=== PATIENT | female | born 1975 | race Caucasian/White ===

== ENCOUNTER 2021-02-21 14:35 | Inpatient (IN) | payer OTHER, MEDICARE ==
[~2021-02-21 14:35] MED LIST: Iopamidol-370 76% 500 ML 1 ML ONE
[2021-02-21] MEDS ORDERED: Midazolam HCl 2 mg/2 ml Vial ONE (14:52)
[2021-02-21] MEDS ORDERED: Fentanyl 100 MCG/2 ML VIAL ONE ×2 (15:13→18:10)
[2021-02-21] MEDS ORDERED: Mannitol 12.5 GM/50 ML ONE ×2 (15:26→16:45)
[2021-02-21] MEDS ORDERED: Propofol 1,000 MG/100 ML VIAL IV ONE (16:18)
[2021-02-21 16:47] LABS: ALT (SGPT) 234 U/L (8-55); AST (SGOT) 377 U/L (5-34); Albumin 3.2 g/dL (3.5-5.0); Alkaline Phosphatase 48 U/L (40-110); Anion Gap 14 mmol/L (10-20); BUN (Urea Nitrogen) 9 mg/dL (7.0-18.7); Bilirubin, Total 0.6 mg/dL (0.2-1.2); Calc. Creatinine Clearance 0 mL/min (70-130); Calcium 8.7 mg/dL (7.8-10.44); Carbon Dioxide 17 mmol/L (22-29); Chloride 112 mmol/L (98-107); Globulin 1.8 g/dL (2.4-3.5); Glucose 133 mg/dL (70-105); Sodium 139 mmol/L (136-145)
[2021-02-21 16:50] LABS: Lactic Acid 2.9 mmol/L (0.5-2.2)
[2021-02-21 16:51] LABS: Band 41 % (5-11); Hemoglobin 12.9 g/dL (12.0-16.0); Lymphocytes 4 % (21-51); Mean Corpuscular HGB CONC 31.8 g/dL (32.0-36.0); Mean Corpuscular Hemoglobin 31.3 pg (27.0-31.0); Mean Corpuscular Volume 98.3 fL (78.0-98.0); Mean Platelet Volume 8.9 fL (7.4-10.4); Monocytes 11 % (0-10); Platelet Count 161 thou/uL (130-400); RBC Distribution Width 12.8 % (11.5-14.5); Red Blood Cell (RBC) Count 4.13 mill/uL (4.20-5.40); White Blood Cell (WBC) Count 26.8 thou/uL (4.8-10.8)
[2021-02-21 16:52] LABS: Platelet Morphology Comment Appears Adequate; Polychromasia SLIGHT = 2-3 cells (100X) (0-2/hpf)
[2021-02-21 16:53] LABS: INR-International Normal Ratio 1.4; PTT 31.3 sec (22.9-36.1); Prothrombin Time 17.3 sec (12.0-14.7)
[2021-02-21] MEDS ORDERED: Dextrose 5% in Water 1,000 ML IV PRN (17:49)
[2021-02-21] MEDS ORDERED: Lorazepam 2 MG/ML VIAL SLOW IVP PRN ×2 (17:49→18:00)
[2021-02-21] MEDS ORDERED: hydrALAZINE 20 MG/ML VIAL SLOW IVP PRN (17:49)
[2021-02-21] MEDS ORDERED: Ondansetron ODT 4 MG TAB PO PRN (17:49)
[2021-02-21] MEDS ORDERED: Ventilator Sedation Protocol 1 EACH FS SCH (17:49)
[2021-02-21] MEDS ORDERED: Ondansetron PF 4 MG/2 ML Vial IVP PRN (17:49)
[2021-02-21] MEDS ORDERED: Dextrose 50% Abboject 50 ML SYRINGE SLOW IVP PRN (17:49)
[2021-02-21 17:50] LABS: Base Excess (BEa) -7.2 mEq/L (-2.0 to +3.0); CO2 Tension 40.7 mmHg (35.0-45.0); Calcium, Ionized (arterial) 1.16 mmol/L (1.12-1.30); Carboxyhemoglobin (COHb) 0.3 gm% (0.0-3.0); Hemoglobin (Hb) 11.4 g/dL (12.0-16.0); O2 Tension (PaO2), arterial 231.6 mmHg (80.0-100.0); Potassium - ABG Lab 4.24 mmol/L (3.70-5.30); pH, Arterial 7.29 (7.35-7.45)
[2021-02-21 17:58] LABS: Puncture Site Arterial Line
[2021-02-21 17:59] LABS: ALV-art Gradient 145.325 mmHg (0-20)
[2021-02-21] MEDS ORDERED: DISCONTINUE PREVIOUS NARCOTIC PAIN MEDICATIONS AND BENZODIAZEPINES FS SCH (18:00)
[2021-02-21] MEDS ORDERED: Propofol BOLUS 1,000 MG/100 ML VIAL IV PRN (18:00)
[2021-02-21] MEDS ORDERED: Morphine 2 MG/ML VIAL SLOW IVP PRN (18:00)
[2021-02-21] MEDS ORDERED: Fentanyl BOLUS 250 ML IVPB PRN (18:00)
[2021-02-21] MEDS ORDERED: Fentanyl CADD 100 ML ONE (18:15)
[2021-02-21] MEDS: Mannitol 12.5 GM/50 ML SLOW IVP SCH ×2 (18:15→18:45)
[2021-02-21] MEDS: Sodium Chloride 0.9% 1,000 ML IV SCH (18:15)
[2021-02-21] MEDS ORDERED: manNITOL 20% 500 ML IVPB SCH (18:45)
[2021-02-21] MEDS: ceFAZolin 1 GM/D5W 1 GM in Premix Bag 1 BAG IVPB SCH (19:32)
[2021-02-21] MEDS: Famotidine/PF 20 mg/2ml Vial SLOW IVP SCH (21:33)
[2021-02-21] MEDS ORDERED: CEFAZOLIN 1 GM VIAL SLOW IVP SCH (22:00)
[2021-02-21] MEDS: manNITOL 20% 250 ML IVPB SCH (23:26)
[2021-02-21 23:53] LABS: Sodium 136 mmol/L (136-145)
[2021-02-22] MEDS: Propofol 1,000 MG/100 ML VIAL IV PRN ×3 (00:29→20:42)
[2021-02-22] MEDS ORDERED: Norepinephrine 8 MG/0.9% NS 250 ML ONE (01:05)
[2021-02-22] MEDS ORDERED: Hydrocortisone Sod Succ/PF 100 mg/2 ml Vial IVP SCH (01:30)
[2021-02-22] MEDS ORDERED: Norepinephrine 16 MG in Dextrose 5% in Water 234 ML IVPB SCH (01:30)
[2021-02-22 02:09] LABS: Hemoglobin 11.6 g/dL (12.0-16.0)
[2021-02-22] MEDS: ceFAZolin 1 GM/D5W 1 GM in Premix Bag 1 BAG IVPB SCH ×3 (03:16→20:56)
[2021-02-22 03:42] LABS: #Basophils 0.1 thou/uL (0.0-0.2); #Monocytes 1.7 thou/uL (0.11-0.59); #Neutrophils 17.9 thou/uL (1.40-6.50); %Basophils 0.3 % (0.0-1.0); %Eosinophils 0.1 % (0.0-10.0); %Lymphocytes 9.2 % (21.0-51.0); %Monocytes 7.6 % (0.0-10.0); %Neutrophils 82.8 % (42.0-75.0); Hemoglobin 11.5 g/dL (12.0-16.0); Mean Corpuscular HGB CONC 33.1 g/dL (32.0-36.0); Mean Corpuscular Volume 96.9 fL (78.0-98.0); Mean Platelet Volume 9.6 fL (7.4-10.4); Platelet Count 166 thou/uL (130-400); RBC Distribution Width 13.5 % (11.5-14.5); Red Blood Cell (RBC) Count 3.59 mill/uL (4.20-5.40); White Blood Cell (WBC) Count 21.7 thou/uL (4.8-10.8)
[2021-02-22 04:04] LABS: Phosphorus 4.3 mg/dL (2.3-4.7)
[2021-02-22 04:05] LABS: Anion Gap 12 mmol/L (10-20); BUN (Urea Nitrogen) 14 mg/dL (7.0-18.7); Calc. Creatinine Clearance 63 mL/min (70-130); Carbon Dioxide 20 mmol/L (22-29); Chloride 110 mmol/L (98-107); Potassium 5.3 mmol/L (3.5-5.1); Sodium 137 mmol/L (136-145)
[2021-02-22 04:06] LABS: Calcium 8.2 mg/dL (7.8-10.44); Glucose 141 mg/dL (70-105)
[2021-02-22] MEDS: manNITOL 20% 250 ML IVPB SCH ×3 (04:43→18:39)
[2021-02-22] MEDS: Hydrocortisone Sod Succ/PF 100 mg/2 ml Vial IVP SCH ×3 (06:33→18:41)
[2021-02-22 07:00] LABS: Actual Bicarbonate (HCO3a) 17.4 mEq/L (22-28); Base Excess (BEa) -8.1 mEq/L (-2.0 to +3.0); Calcium, Ionized (arterial) 1.19 mmol/L (1.12-1.30); Carboxyhemoglobin (COHb) 0.3 gm% (0.0-3.0); Hemoglobin (Hb) 11.7 g/dL (12.0-16.0); O2 Tension (PaO2), arterial 211.4 mmHg (80.0-100.0)
[2021-02-22 07:03] LABS: Puncture Site Arterial Line
[2021-02-22] MEDS: Famotidine/PF 20 mg/2ml Vial SLOW IVP SCH ×2 (07:38→20:42)
[2021-02-22] MEDS: Sodium Chloride 0.9% 1,000 ML IV SCH ×3 (07:38→20:24)
[2021-02-22] MEDS: Fentanyl CADD 100 ML IV SCH ×2 (08:00→20:42)
[2021-02-22] MEDS ORDERED: PHENYLEPHRINE-NS 100 MCG/ML 10 ML SYRINGE ONE (14:51)
[2021-02-22] MEDS ORDERED: Rocuronium Bromide 10 MG/ML (10ML VIAL) ONE (14:51)
[2021-02-22] MEDS ORDERED: Bacitracin Zinc Ointment 30 gm TUBE ONE (15:09)
[2021-02-22] MEDS ORDERED: Lidocaine 0.5%/Epinephrine 1:200,000 50 ml Vial ONE (15:09)
[2021-02-22] MEDS ORDERED: Lidocaine 4% Topical Sol 50 ML BOT ONE (15:09)
[2021-02-22] MEDS ORDERED: Fentanyl 250 MCG/5 ML VIAL ONE (15:11)
[2021-02-22] MEDS ORDERED: Phenylephrine 10 MG/ML VIAL ONE ×3 (15:17)
[2021-02-22] MEDS ORDERED: Mannitol 12.5 GM/50 ML IV PRN (18:03)
[2021-02-22] MEDS ORDERED: Sodium Chloride 0.9% 1,000 ML IV SCH (18:15)
[2021-02-22 18:57] LABS: Actual Bicarbonate (HCO3a) 17.9 mEq/L (22-28); Base Excess (BEa) -7.7 mEq/L (-2.0 to +3.0); CO2 Tension 36.1 mmHg (35.0-45.0); Calcium, Ionized (arterial) 1.07 mmol/L (1.12-1.30); Carboxyhemoglobin (COHb) 0.3 gm% (0.0-3.0); Hemoglobin (Hb) 7.7 g/dL (12.0-16.0); O2 Tension (PaO2), arterial 189.4 mmHg (80.0-100.0); Potassium - ABG Lab 4.45 mmol/L (3.70-5.30); pH, Arterial 7.31 (7.35-7.45)
[2021-02-22 18:59] LABS: ALV-art Gradient 121.975 mmHg (0-20); Puncture Site Arterial Line
[2021-02-22] MEDS ORDERED: Calcium Chloride 1 GM/10 ML Abboject SYRINGE IVP SCH (19:15)
[2021-02-22] MEDS ORDERED: Fentanyl CADD 100 ML ONE (20:02)
[2021-02-23] MEDS: ceFAZolin 1 GM/D5W 1 GM in Premix Bag 1 BAG IVPB SCH ×3 (03:19→20:27)
[2021-02-23] MEDS: Sodium Chloride 0.9% 1,000 ML IV SCH (03:20)
[2021-02-23] MEDS ORDERED: Lorazepam 2 MG/ML VIAL SLOW IVP SCH (04:00)
[2021-02-23 04:42] LABS: Lactic Acid 5.8 mmol/L (0.5-2.2)
[2021-02-23 04:44] LABS: Anion Gap 14 mmol/L (10-20); BUN (Urea Nitrogen) 13 mg/dL (7.0-18.7); CK (CPK) 2367 U/L (29-168); Calc. Creatinine Clearance 72 mL/min (70-130); Calcium 8.5 mg/dL (7.8-10.44); Carbon Dioxide 19 mmol/L (22-29); Chloride 120 mmol/L (98-107); Glucose 149 mg/dL (70-105); Magnesium 1.9 mg/dL (1.6-2.6); Phosphorus 4.2 mg/dL (2.3-4.7); Sodium 149 mmol/L (136-145)
[2021-02-23] MEDS ORDERED: levETIRAcetam in NS 1,000 MG in Premix Bag 1 BAG IVPB SCH (04:45)
[2021-02-23] MEDS: Lactated Ringer's 1,000 ML IV SCH ×2 (05:08→14:49)
[2021-02-23] MEDS: Hydrocortisone Sod Succ/PF 100 mg/2 ml Vial IVP SCH ×4 (05:08→18:54)
[2021-02-23 05:20] LABS: #Monocytes 0.7 thou/uL (0.11-0.59); #Neutrophils 10.3 thou/uL (1.40-6.50); %Basophils 0.1 % (0.0-1.0); %Lymphocytes 8.1 % (21.0-51.0); %Monocytes 6.2 % (0.0-10.0); %Neutrophils 85.6 % (42.0-75.0); Hemoglobin 7.7 g/dL (12.0-16.0); Mean Corpuscular HGB CONC 32.5 g/dL (32.0-36.0); Mean Corpuscular Hemoglobin 31.8 pg (27.0-31.0); Mean Corpuscular Volume 97.6 fL (78.0-98.0); Mean Platelet Volume 10.4 fL (7.4-10.4); Platelet Count 103 thou/uL (130-400); Platelet Morphology Comment Appears Decreased; RBC Distribution Width 13.8 % (11.5-14.5); Red Blood Cell (RBC) Count 2.42 mill/uL (4.20-5.40)
[2021-02-23] MEDS: Famotidine/PF 20 mg/2ml Vial SLOW IVP SCH ×2 (08:35→20:58)
[2021-02-23] MEDS: levETIRAcetam in NS 500 MG in Premix Bag 1 BAG IVPB SCH ×2 (08:36→20:58)
[2021-02-23 08:48] LABS: Actual Bicarbonate (HCO3a) 18.3 mEq/L (22-28); Base Excess (BEa) -7.9 mEq/L (-2.0 to +3.0); CO2 Tension 40.1 mmHg (35.0-45.0); Carboxyhemoglobin (COHb) 0.1 gm% (0.0-3.0); Hemoglobin (Hb) 8.5 g/dL (12.0-16.0); O2 Tension (PaO2), arterial 60.7 mmHg (80.0-100.0); Potassium - ABG Lab 3.66 mmol/L (3.70-5.30); pH, Arterial 7.28 (7.35-7.45)
[2021-02-23 08:49] LABS: ALV-art Gradient 245.675 mmHg (0-20); Puncture Site Arterial Line
[2021-02-23] MEDS ORDERED: Vecuronium 10 MG VIAL ONE (08:50)
[2021-02-23] MEDS ORDERED: Sterile Water 10 ML ONE (08:50)
[2021-02-23] MEDS ORDERED: Vecuronium 10 MG VIAL IVP SCH (09:00)
[2021-02-23] MEDS ORDERED: Fentanyl CADD 100 ML ONE (11:33)
[2021-02-23 17:27] LABS: Actual Bicarbonate (HCO3a) 18.9 mEq/L (22-28); Base Excess (BEa) -6.4 mEq/L (-2.0 to +3.0); CO2 Tension 36.6 mmHg (35.0-45.0); Calcium, Ionized (arterial) 1.14 mmol/L (1.12-1.30); Carboxyhemoglobin (COHb) 0.4 gm% (0.0-3.0); Hemoglobin (Hb) 7.5 g/dL (12.0-16.0); O2 Tension (PaO2), arterial 133.3 mmHg (80.0-100.0); Potassium - ABG Lab 3.35 mmol/L (3.70-5.30); pH, Arterial 7.33 (7.35-7.45)
[2021-02-23 17:31] LABS: Puncture Site Arterial Line
[2021-02-23 18:03] LABS: Hemoglobin 8.2 g/dL (12.0-16.0); Mean Corpuscular Hemoglobin 33.6 pg (27.0-31.0); Mean Corpuscular Volume 98.8 fL (78.0-98.0); Mean Platelet Volume 10.2 fL (7.4-10.4); Platelet Count 90 thou/uL (130-400); RBC Distribution Width 13.5 % (11.5-14.5); Red Blood Cell (RBC) Count 2.44 mill/uL (4.20-5.40); White Blood Cell (WBC) Count 6.7 thou/uL (4.8-10.8)
[2021-02-23 18:25] LABS: Band 51 % (5-11); Dohle Bodies SLIGHT; Lymphocytes 16 % (21-51); MDiff Complete? YES; Metamyelocyte 7 % (0-0); Neutrophil 25 % (42-75); Nucleated RBC 1 % (0); Platelet Morphology Comment Appears Decreased; Polychromasia SLIGHT = 2-3 cells (100X) (0-2/hpf); Reflex for Review?? YES; Vacuoles SLIGHT
[2021-02-24] MEDS: Lactated Ringer's 1,000 ML IV SCH ×3 (00:13→19:44)
[2021-02-24] MEDS: Hydrocortisone Sod Succ/PF 100 mg/2 ml Vial IVP SCH ×5 (00:14→23:54)
[2021-02-24] MEDS: ceFAZolin 1 GM/D5W 1 GM in Premix Bag 1 BAG IVPB SCH ×3 (03:13→19:44)
[2021-02-24 04:44] LABS: Anion Gap 11 mmol/L (10-20); BUN (Urea Nitrogen) 14 mg/dL (7.0-18.7); Calc. Creatinine Clearance 92 mL/min (70-130); Calcium 8.5 mg/dL (7.8-10.44); Carbon Dioxide 24 mmol/L (22-29); Chloride 119 mmol/L (98-107); Glucose 115 mg/dL (70-105); Phosphorus 2.5 mg/dL (2.3-4.7); Potassium 3.7 mmol/L (3.5-5.1); Sodium 150 mmol/L (136-145)
[2021-02-24 04:53] LABS: Band 75 % (5-11); Hemoglobin 7.7 g/dL (12.0-16.0); Lymphocytes 7 % (21-51); MDiff Complete? YES; Mean Corpuscular Volume 96.8 fL (78.0-98.0); Mean Platelet Volume 9.8 fL (7.4-10.4); Metamyelocyte 3 % (0-0); Monocytes 1 % (0-10); Neutrophil 14 % (42-75); Platelet Count 92 thou/uL (130-400); Platelet Morphology Comment Appears Decreased; RBC Distribution Width 13.6 % (11.5-14.5); RBC Morphology Normal; Red Blood Cell (RBC) Count 2.47 mill/uL (4.20-5.40); White Blood Cell (WBC) Count 9.8 thou/uL (4.8-10.8)
[2021-02-24 07:05] LABS: CO2 Tension 38.3 mmHg (35.0-45.0); pH, Arterial 7.39 (7.35-7.45)
[2021-02-24 07:06] LABS: Actual Bicarbonate (HCO3a) 22.7 mEq/L (22-28); Base Excess (BEa) -2.1 mEq/L (-2.0 to +3.0); Calcium, Ionized (arterial) 1.19 mmol/L (1.12-1.30); Carboxyhemoglobin (COHb) 0.3 gm% (0.0-3.0); Hemoglobin (Hb) 8.6 g/dL (12.0-16.0); O2 Tension (PaO2), arterial 114.8 mmHg (80.0-100.0); Potassium - ABG Lab 3.67 mmol/L (3.70-5.30)
[2021-02-24 07:48] LABS: ALV-art Gradient 193.825 mmHg (0-20); Puncture Site Arterial Line
[2021-02-24] MEDS: levETIRAcetam in NS 500 MG in Premix Bag 1 BAG IVPB SCH ×2 (09:10→20:32)
[2021-02-24] MEDS: Famotidine/PF 20 mg/2ml Vial SLOW IVP SCH ×2 (09:10→19:41)
[2021-02-24] MEDS: Acetaminophen 650 MG/20.3 ML UDCUP PER TUBE PRN (20:04)
[2021-02-24] MEDS ORDERED: Fentanyl CADD 100 ML ONE (20:28)
[2021-02-24] MEDS: Fentanyl CADD 100 ML IV SCH (20:30)
[2021-02-25] MEDS: ceFAZolin 1 GM/D5W 1 GM in Premix Bag 1 BAG IVPB SCH (03:17)
[2021-02-25 04:09] LABS: Hemoglobin 7.1 g/dL (12.0-16.0); Mean Corpuscular HGB CONC 32.8 g/dL (32.0-36.0); Mean Corpuscular Volume 97.7 fL (78.0-98.0); Platelet Count 121 thou/uL (130-400); RBC Distribution Width 13.3 % (11.5-14.5); Red Blood Cell (RBC) Count 2.21 mill/uL (4.20-5.40)
[2021-02-25 04:29] LABS: Anion Gap 12 mmol/L (10-20); BUN (Urea Nitrogen) 18 mg/dL (7.0-18.7); Calc. Creatinine Clearance 92 mL/min (70-130); Calcium 8.8 mg/dL (7.8-10.44); Carbon Dioxide 26 mmol/L (22-29); Chloride 117 mmol/L (98-107); Glucose 125 mg/dL (70-105); Magnesium 2.4 mg/dL (1.6-2.6); Phosphorus 2.9 mg/dL (2.3-4.7); Potassium 3.6 mmol/L (3.5-5.1); Sodium 151 mmol/L (136-145)
[2021-02-25 04:33] LABS: Band 58 % (5-11); Lymphocytes 5 % (21-51); MDiff Complete? YES; Monocytes 2 % (0-10); Neutrophil 35 % (42-75); Toxic Granulation SLIGHT
[2021-02-25] MEDS: Hydrocortisone Sod Succ/PF 100 mg/2 ml Vial IVP SCH ×5 (06:05→23:40)
[2021-02-25] MEDS: Lactated Ringer's 1,000 ML IV SCH ×2 (08:49→17:32)
[2021-02-25] MEDS: Famotidine/PF 20 mg/2ml Vial SLOW IVP SCH ×2 (08:53→20:25)
[2021-02-25] MEDS: levETIRAcetam in NS 500 MG in Premix Bag 1 BAG IVPB SCH ×2 (08:53→20:31)
[2021-02-25] MEDS: Acetaminophen 650 MG/20.3 ML UDCUP PER TUBE PRN ×3 (08:53→17:35)
[2021-02-25] MEDS: cefTRIAXone\\ROCEPHIN 2 GM in Sodium Chloride 0.9% 100 ML IVPB SCH (11:52)
[2021-02-25] MEDS ORDERED: Potassium Phosphate 30 MMOL in Sodium Chloride 0.9% 250 ML 250 ML IVPB SCH (12:30)
[2021-02-25] MEDS: Ferrous Sulfate 325 MG TAB PO SCH (17:30)
[2021-02-25] MEDS: Ascorbic Acid 500 mg Chewable Tablet PO SCH (20:25)
[2021-02-26] MEDS: Lactated Ringer's 1,000 ML IV SCH (04:23)
[2021-02-26 04:36] LABS: Band 32 % (5-11); Hypochromia SLIGHT = 6-15 cells (100X) (0-5/hpf); Lymphocytes 3 % (21-51); MDiff Complete? YES; Mean Corpuscular HGB CONC 31.8 g/dL (32.0-36.0); Mean Corpuscular Hemoglobin 30.7 pg (27.0-31.0); Mean Corpuscular Volume 96.6 fL (78.0-98.0); Mean Platelet Volume 9.6 fL (7.4-10.4); Monocytes 1 % (0-10); Neutrophil 64 % (42-75); Platelet Count 156 thou/uL (130-400); Platelet Morphology Comment Appears Adequate; RBC Distribution Width 13.8 % (11.5-14.5); Red Blood Cell (RBC) Count 2.91 mill/uL (4.20-5.40); White Blood Cell (WBC) Count 14.9 thou/uL (4.8-10.8)
[2021-02-26 04:45] LABS: Anion Gap 12 mmol/L (10-20); BUN (Urea Nitrogen) 14 mg/dL (7.0-18.7); Calc. Creatinine Clearance 107 mL/min (70-130); Calcium 8.8 mg/dL (7.8-10.44); Carbon Dioxide 27 mmol/L (22-29); Chloride 114 mmol/L (98-107); Glucose 154 mg/dL (70-105); Magnesium 2.3 mg/dL (1.6-2.6); Phosphorus 4.2 mg/dL (2.3-4.7); Potassium 3.7 mmol/L (3.5-5.1); Sodium 149 mmol/L (136-145)
[2021-02-26] MEDS: Hydrocortisone Sod Succ/PF 100 mg/2 ml Vial IVP SCH ×3 (05:34→17:04)
[2021-02-26] MEDS: Ascorbic Acid 500 mg Chewable Tablet PO SCH ×2 (07:52→20:28)
[2021-02-26] MEDS: Famotidine/PF 20 mg/2ml Vial SLOW IVP SCH ×2 (07:52→20:28)
[2021-02-26] MEDS: levETIRAcetam in NS 500 MG in Premix Bag 1 BAG IVPB SCH ×2 (07:53→21:24)
[2021-02-26] MEDS: Ferrous Sulfate 325 MG TAB PO SCH ×2 (07:53→16:55)
[2021-02-26] MEDS ORDERED: Senokot 8.6 MG TAB PO SCH (09:45)
[2021-02-26] MEDS: cefTRIAXone\\ROCEPHIN 2 GM in Sodium Chloride 0.9% 100 ML IVPB SCH (10:23)
[2021-02-26] MEDS: Acetaminophen 650 MG/20.3 ML UDCUP PER TUBE PRN ×3 (10:23→22:25)
[2021-02-26] MEDS ORDERED: Furosemide 40 MG/4 ML VIAL ONE (11:35)
[2021-02-26] MEDS ORDERED: Furosemide 20 MG/2 ML VIAL SLOW IVP SCH (11:45)
[2021-02-26] MEDS ORDERED: Fentanyl CADD 100 ML ONE (13:28)
[2021-02-26] MEDS: Senokot 8.6 MG TAB PER TUBE SCH (20:28)
[2021-02-27] MEDS: Hydrocortisone Sod Succ/PF 100 mg/2 ml Vial IVP SCH ×5 (00:16→23:23)
[2021-02-27 04:40] LABS: Hemoglobin 9.3 g/dL (12.0-16.0); Mean Corpuscular HGB CONC 32.2 g/dL (32.0-36.0); Mean Corpuscular Hemoglobin 31.1 pg (27.0-31.0); Mean Corpuscular Volume 96.5 fL (78.0-98.0); Mean Platelet Volume 9.8 fL (7.4-10.4); Platelet Count 205 thou/uL (130-400); RBC Distribution Width 13.2 % (11.5-14.5); Red Blood Cell (RBC) Count 2.99 mill/uL (4.20-5.40); White Blood Cell (WBC) Count 12.7 thou/uL (4.8-10.8)
[2021-02-27 05:01] LABS: Anion Gap 11 mmol/L (10-20); BUN (Urea Nitrogen) 18 mg/dL (7.0-18.7); Calc. Creatinine Clearance 104 mL/min (70-130); Calcium 8.3 mg/dL (7.8-10.44); Carbon Dioxide 30 mmol/L (22-29); Chloride 113 mmol/L (98-107); Glucose 160 mg/dL (70-105); Magnesium 2.4 mg/dL (1.6-2.6); Phosphorus 3.6 mg/dL (2.3-4.7); Potassium 3.5 mmol/L (3.5-5.1); Sodium 150 mmol/L (136-145)
[2021-02-27 05:12] LABS: Lymphocytes 11 % (21-51); MDiff Complete? YES; Metamyelocyte 1 % (0-0); Monocytes 2 % (0-10); Neutrophil 86 % (42-75); Nucleated RBC 1 % (0); Platelet Morphology Comment Appears Adequate
[2021-02-27] MEDS: Ferrous Sulfate 325 MG TAB PO SCH ×2 (08:22→17:14)
[2021-02-27] MEDS: levETIRAcetam in NS 500 MG in Premix Bag 1 BAG IVPB SCH ×2 (08:22→21:55)
[2021-02-27] MEDS: Famotidine/PF 20 mg/2ml Vial SLOW IVP SCH ×2 (08:22→22:13)
[2021-02-27] MEDS: Ascorbic Acid 500 mg Chewable Tablet PO SCH ×2 (08:22→22:13)
[2021-02-27] MEDS: Senokot 8.6 MG TAB PER TUBE SCH ×2 (08:23→22:20)
[2021-02-27] MEDS: cefTRIAXone\\ROCEPHIN 2 GM in Sodium Chloride 0.9% 100 ML IVPB SCH (11:25)
[2021-02-27] MEDS: Acetaminophen 650 MG/20.3 ML UDCUP PER TUBE PRN ×3 (12:41→22:08)
[2021-02-27] MEDS ORDERED: Polyethylene Glycol 3350 17 GM Packet PO SCH (17:15)
[2021-02-27] MEDS ORDERED: Fentanyl CADD 100 ML ONE (19:31)
[2021-02-27] MEDS: Fentanyl CADD 100 ML IV SCH (19:40)
[2021-02-27] MEDS: Amantadine HCl 100 mg Capsule PO SCH (22:10)
[2021-02-28] MEDS: Acetaminophen 650 MG/20.3 ML UDCUP PER TUBE PRN (02:28)
[2021-02-28 04:32] LABS: Anion Gap 11 mmol/L (10-20); BUN (Urea Nitrogen) 16 mg/dL (7.0-18.7); Calc. Creatinine Clearance 103 mL/min (70-130); Calcium 7.9 mg/dL (7.8-10.44); Carbon Dioxide 29 mmol/L (22-29); Chloride 112 mmol/L (98-107); Glucose 154 mg/dL (70-105); Magnesium 2.3 mg/dL (1.6-2.6); Phosphorus 3.1 mg/dL (2.3-4.7); Potassium 3.4 mmol/L (3.5-5.1); Sodium 149 mmol/L (136-145)
[2021-02-28 05:18] LABS: Band 23 % (5-11); Hemoglobin 8.4 g/dL (12.0-16.0); Lymphocytes 9 % (21-51); MDiff Complete? YES; Mean Corpuscular HGB CONC 32.7 g/dL (32.0-36.0); Mean Corpuscular Hemoglobin 31.8 pg (27.0-31.0); Mean Corpuscular Volume 97.4 fL (78.0-98.0); Mean Platelet Volume 9.4 fL (7.4-10.4); Monocytes 6 % (0-10); Neutrophil 62 % (42-75); Platelet Count 251 thou/uL (130-400); RBC Distribution Width 13.2 % (11.5-14.5); Red Blood Cell (RBC) Count 2.64 mill/uL (4.20-5.40); White Blood Cell (WBC) Count 11.2 thou/uL (4.8-10.8)
[2021-02-28] MEDS: Hydrocortisone Sod Succ/PF 100 mg/2 ml Vial IVP SCH ×4 (06:00→23:23)
[2021-02-28] MEDS ORDERED: Potassium Chloride 40 MEQ in Premix Bag 1 BAG IVPB SCH (06:45)
[2021-02-28] MEDS ORDERED: Fentanyl 100 MCG/2 ML VIAL ONE (08:07)
[2021-02-28] MEDS ORDERED: Midazolam HCl 2 mg/2 ml Vial ONE ×3 (08:07→08:34)
[2021-02-28] MEDS ORDERED: Vecuronium 10 MG VIAL ONE (08:07)
[2021-02-28] MEDS ORDERED: Lidocaine 1% w/Epinephrine 1:100K 20 ML VIAL ONE (08:29)
[2021-02-28] MEDS: Ferrous Sulfate 325 MG TAB PO SCH ×2 (09:52→16:29)
[2021-02-28] MEDS: Furosemide 20 MG/2 ML VIAL SLOW IVP SCH ×3 (09:52→23:23)
[2021-02-28] MEDS: Famotidine/PF 20 mg/2ml Vial SLOW IVP SCH ×2 (09:52→20:46)
[2021-02-28] MEDS: Ascorbic Acid 500 mg Chewable Tablet PO SCH ×2 (09:53→23:16)
[2021-02-28] MEDS: Amantadine HCl 100 mg Capsule PO SCH ×2 (09:53→23:16)
[2021-02-28] MEDS: Senokot 8.6 MG TAB PER TUBE SCH ×2 (09:55→23:16)
[2021-02-28] MEDS: Polyethylene Glycol 3350 17 GM Packet PO SCH (09:56)
[2021-02-28] MEDS: levETIRAcetam in NS 500 MG in Premix Bag 1 BAG IVPB SCH ×2 (09:56→20:44)
[2021-02-28] MEDS: cefTRIAXone\\ROCEPHIN 2 GM in Sodium Chloride 0.9% 100 ML IVPB SCH (11:03)
[2021-02-28 11:14] LABS: Bacteria/HPF None Seen HPF (None Seen); Bilirubin Negative (Negative); Blood, Urine Trace (Negative); Clarity Clear (Clear); Glucose, Urine (Dipstick) Normal (Negative); Ketone, Urine Negative (Negative); Leukocyte Negative Leu/uL (Negative); Nitrite Negative (Negative); Protein, Urine (Dipstick) Negative (Neg-Trace); RBC/HPF 0-3 HPF (0-3); Squamous Epithelial 0-3 HPF (0-3); Urobilinogen Normal mg/dL (Less than 2); WBC/HPF 0-3 HPF (0-3); pH, Urine 6.5 (5.0-9.0)
[2021-02-28 11:23] LABS: Urine Culture Reflex No No
[2021-02-28] MEDS ORDERED: Potassium Phosphate 30 MMOL in Sodium Chloride 0.9% 500 ML IVPB SCH (19:00)
[2021-03-01 05:01] LABS: #Monocytes 0.7 thou/uL (0.11-0.59); #Neutrophils 10.4 thou/uL (1.40-6.50); %Eosinophils 0.3 % (0.0-10.0); %Lymphocytes 7.9 % (21.0-51.0); %Monocytes 5.9 % (0.0-10.0); %Neutrophils 85.9 % (42.0-75.0); Hemoglobin 9.5 g/dL (12.0-16.0); Mean Corpuscular HGB CONC 31.9 g/dL (32.0-36.0); Mean Corpuscular Hemoglobin 31.2 pg (27.0-31.0); Mean Corpuscular Volume 97.8 fL (78.0-98.0); Mean Platelet Volume 9.2 fL (7.4-10.4); Platelet Count 323 thou/uL (130-400); Red Blood Cell (RBC) Count 3.05 mill/uL (4.20-5.40); White Blood Cell (WBC) Count 12.1 thou/uL (4.8-10.8)
[2021-03-01] MEDS: Hydrocortisone Sod Succ/PF 100 mg/2 ml Vial IVP SCH (06:32)
[2021-03-01 06:54] LABS: BUN (Urea Nitrogen) 19 mg/dL (7.0-18.7)
[2021-03-01 06:55] LABS: Anion Gap 13 mmol/L (10-20); Calc. Creatinine Clearance 107 mL/min (70-130); Calcium 8.3 mg/dL (7.8-10.44); Carbon Dioxide 31 mmol/L (22-29); Chloride 111 mmol/L (98-107); Glucose 115 mg/dL (70-105); Magnesium 2.3 mg/dL (1.6-2.6); Phosphorus 4.3 mg/dL (2.3-4.7); Potassium 3.7 mmol/L (3.5-5.1); Sodium 151 mmol/L (136-145)
[2021-03-01] MEDS: Polyethylene Glycol 3350 17 GM Packet PO SCH (09:08)
[2021-03-01] MEDS: Amantadine HCl 100 mg Capsule PO SCH ×2 (09:08→20:51)
[2021-03-01] MEDS: levETIRAcetam in NS 500 MG in Premix Bag 1 BAG IVPB SCH ×2 (09:08→20:52)
[2021-03-01] MEDS: Senokot 8.6 MG TAB PER TUBE SCH ×2 (09:09→20:52)
[2021-03-01] MEDS: Ascorbic Acid 500 mg Chewable Tablet PO SCH ×2 (09:09→20:53)
[2021-03-01] MEDS: Ferrous Sulfate 325 MG TAB PO SCH ×2 (09:09→17:22)
[2021-03-01] MEDS: Famotidine/PF 20 mg/2ml Vial SLOW IVP SCH ×2 (09:10→20:51)
[2021-03-01] MEDS: cefTRIAXone\\ROCEPHIN 2 GM in Sodium Chloride 0.9% 100 ML IVPB SCH (11:10)
[2021-03-01] MEDS: Acetaminophen 650 MG/20.3 ML UDCUP PER TUBE PRN (23:14)
[2021-03-02 05:03] LABS: Anion Gap 11 mmol/L (10-20); BUN (Urea Nitrogen) 21 mg/dL (7.0-18.7); Calc. Creatinine Clearance 115 mL/min (70-130); Carbon Dioxide 29 mmol/L (22-29); Chloride 113 mmol/L (98-107); Glucose 133 mg/dL (70-105); Magnesium 2.2 mg/dL (1.6-2.6); Potassium 3.3 mmol/L (3.5-5.1); Sodium 150 mmol/L (136-145)
[2021-03-02 05:08] LABS: #Eosinphils 0.2 thou/uL (0.0-0.7); #Lymphocytes 1.6 thou/uL (1.20-3.40); #Monocytes 0.7 thou/uL (0.11-0.59); #Neutrophils 11.2 thou/uL (1.40-6.50); %Basophils 0.1 % (0.0-1.0); %Eosinophils 1.5 % (0.0-10.0); %Lymphocytes 11.6 % (21.0-51.0); %Neutrophils 81.9 % (42.0-75.0); Eosinophils 1 % (0-10); Lymphocytes 8 % (21-51); MDiff Complete? YES; Mean Corpuscular HGB CONC 30.6 g/dL (32.0-36.0); Mean Corpuscular Hemoglobin 30.1 pg (27.0-31.0); Mean Corpuscular Volume 98.1 fL (78.0-98.0); Mean Platelet Volume 9.4 fL (7.4-10.4); Metamyelocyte 2 % (0-0); Monocytes 7 % (0-10); Neutrophil 82 % (42-75); Platelet Count 379 thou/uL (130-400); Platelet Morphology Comment Appears Adequate; RBC Distribution Width 13.3 % (11.5-14.5); Red Blood Cell (RBC) Count 2.99 mill/uL (4.20-5.40); White Blood Cell (WBC) Count 13.6 thou/uL (4.8-10.8)
[2021-03-02] MEDS: Acetaminophen 650 MG/20.3 ML UDCUP PER TUBE PRN ×3 (05:38→21:47)
[2021-03-02] MEDS ORDERED: Potassium Phosphate 30 MMOL in Sodium Chloride 0.9% 250 ML 250 ML IVPB SCH (06:45)
[2021-03-02] MEDS: Amantadine HCl 100 mg Capsule PO SCH ×2 (08:22→21:37)
[2021-03-02] MEDS: Ferrous Sulfate 325 MG TAB PO SCH ×2 (08:22→21:38)
[2021-03-02] MEDS: Senokot 8.6 MG TAB PER TUBE SCH ×2 (08:22→21:38)
[2021-03-02] MEDS: Ascorbic Acid 500 mg Chewable Tablet PO SCH ×2 (08:23→21:38)
[2021-03-02] MEDS: Polyethylene Glycol 3350 17 GM Packet PO SCH (08:23)
[2021-03-02] MEDS: Famotidine/PF 20 mg/2ml Vial SLOW IVP SCH ×2 (08:23→21:37)
[2021-03-02] MEDS: levETIRAcetam in NS 500 MG in Premix Bag 1 BAG IVPB SCH ×2 (08:31→21:36)
[2021-03-02] MEDS ORDERED: Piperacillin/Tazobactam 3.375 GM in Sodium Chloride 0.9% 100 ML IVPB SCH (09:00)
[2021-03-02] MEDS: Piperacillin/Tazobactam 4.5 GM in Sodium Chloride 0.9% 100 ML IVPB SCH ×3 (09:10→21:36)
[2021-03-02] MEDS ORDERED: Morphine 4 MG/ML VIAL SLOW IVP SCH (11:00)
[2021-03-02] MEDS ORDERED: Refresh Lacri-lube Opth Oint 7 GM TUBE EA EYE PRN (11:01)
[2021-03-02] MEDS: Floranex Packet PER TUBE SCH (12:24)
[2021-03-02] MEDS ORDERED: Vecuronium 10 MG VIAL IV SCH (17:45)
[2021-03-02] MEDS ORDERED: Fentanyl 100 MCG/2 ML VIAL SLOW IVP SCH (17:45)
[2021-03-02] MEDS ORDERED: Midazolam HCl 2 mg/2 ml Vial SLOW IVP SCH (17:45)
[2021-03-02 19:04] LABS: Actual Bicarbonate (HCO3a) 25.7 mEq/L (22-28); Base Excess (BEa) 3.7 mEq/L (-2.0 to +3.0); Calcium, Ionized (arterial) 1.09 mmol/L (1.12-1.30); Carboxyhemoglobin (COHb) 0.1 gm% (0.0-3.0); Hemoglobin (Hb) 10.1 g/dL (12.0-16.0); O2 Tension (PaO2), arterial 114.3 mmHg (80.0-100.0); Potassium - ABG Lab 3.59 mmol/L (3.70-5.30)
[2021-03-02 19:07] LABS: Puncture Site RBA; pH, Arterial 7.55 (7.35-7.45)
[2021-03-02 20:43] LABS: Actual Bicarbonate (HCO3a) 26.1 mEq/L (22-28); CO2 Tension 34.5 mmHg (35.0-45.0); Calcium, Ionized (arterial) 1.11 mmol/L (1.12-1.30); Carboxyhemoglobin (COHb) 0.3 gm% (0.0-3.0); Hemoglobin (Hb) 9.9 g/dL (12.0-16.0); O2 Tension (PaO2), arterial 90.7 mmHg (80.0-100.0)
[2021-03-02 20:46] LABS: Puncture Site RBA
[2021-03-02 20:47] LABS: ALV-art Gradient 151.375 mmHg (0-20)
[2021-03-02] MEDS: Bacitracin 1 PK TOP SCH (21:37)
[2021-03-02] MEDS ORDERED: Calcium Chloride 1 GM/10 ML Abboject SYRINGE IVP SCH (21:45)
[2021-03-03] MEDS: Piperacillin/Tazobactam 4.5 GM in Sodium Chloride 0.9% 100 ML IVPB SCH ×3 (02:45→14:56)
[2021-03-03] MEDS: Acetaminophen 650 MG/20.3 ML UDCUP PER TUBE PRN ×2 (04:35→13:44)
[2021-03-03 06:30] VITALS: BMI 24.3
[2021-03-03] MEDS: Floranex Packet PER TUBE SCH (08:35)
[2021-03-03] MEDS: levETIRAcetam in NS 500 MG in Premix Bag 1 BAG IVPB SCH (08:35)
[2021-03-03] MEDS: Famotidine/PF 20 mg/2ml Vial SLOW IVP SCH (08:35)
[2021-03-03] MEDS: Polyethylene Glycol 3350 17 GM Packet PO SCH (08:35)
[2021-03-03] MEDS: Ferrous Sulfate 325 MG TAB PO SCH (08:35)
[2021-03-03] MEDS: Ascorbic Acid 500 mg Chewable Tablet PO SCH (08:35)
[2021-03-03] MEDS: Bacitracin 1 PK TOP SCH ×2 (08:42→14:56)
[2021-03-03] MEDS: Amantadine HCl 100 mg Capsule PO SCH (08:42)
[2021-03-03] MEDS: Senokot 8.6 MG TAB PER TUBE SCH (08:42)
[2021-03-03] MEDS ORDERED: Scopolamine 1.5 mg/72 hour Patch TD SCH (10:15)
[2021-03-03 10:39] LABS: Actual Bicarbonate (HCO3a) 25.6 mEq/L (22-28); Base Excess (BEa) 3.4 mEq/L (-2.0 to +3.0); CO2 Tension 30.5 mmHg (35.0-45.0); Calcium, Ionized (arterial) 1.09 mmol/L (1.12-1.30); Carboxyhemoglobin (COHb) 0.3 gm% (0.0-3.0); O2 Tension (PaO2), arterial 115.3 mmHg (80.0-100.0); pH, Arterial 7.54 (7.35-7.45)
[2021-03-03 10:43] LABS: Puncture Site RRA
[2021-03-03 10:44] LABS: ALV-art Gradient 131.775 mmHg (0-20)
[2021-03-03 10:46] LABS: Hemoglobin 9.5 g/dL (12.0-16.0); Mean Corpuscular HGB CONC 31.8 g/dL (32.0-36.0); Mean Corpuscular Hemoglobin 31.6 pg (27.0-31.0); Mean Corpuscular Volume 99.4 fL (78.0-98.0); Mean Platelet Volume 9.2 fL (7.4-10.4); Platelet Count 518 thou/uL (130-400); RBC Distribution Width 13.1 % (11.5-14.5); White Blood Cell (WBC) Count 14.8 thou/uL (4.8-10.8)
[2021-03-03 11:13] LABS: Anion Gap 12 mmol/L (10-20); BUN (Urea Nitrogen) 14 mg/dL (7.0-18.7); Calc. Creatinine Clearance 114 mL/min (70-130); Calcium 8.1 mg/dL (7.8-10.44); Carbon Dioxide 26 mmol/L (22-29); Chloride 112 mmol/L (98-107); Glucose 119 mg/dL (70-105); Magnesium 1.9 mg/dL (1.6-2.6); Phosphorus 3.2 mg/dL (2.3-4.7); Potassium 3.5 mmol/L (3.5-5.1); Sodium 146 mmol/L (136-145)
[2021-03-03 11:23] LABS: #Eosinphils 0.5 thou/uL (0.0-0.7); #Lymphocytes 1.5 thou/uL (1.20-3.40); #Monocytes 0.7 thou/uL (0.11-0.59); #Neutrophils 12.1 thou/uL (1.40-6.50); %Basophils 0.3 % (0.0-1.0); %Eosinophils 3.4 % (0.0-10.0); %Lymphocytes 10.3 % (21.0-51.0); %Monocytes 4.5 % (0.0-10.0); %Neutrophils 81.5 % (42.0-75.0); MDiff Complete? YES; Macrocytosis SLIGHT = 6-15 cells (100X) (0-5/hpf); Platelet Morphology Comment Appears Increased; Polychromasia SLIGHT = 2-3 cells (100X) (0-2/hpf)
[2021-03-03 12:01] VITALS: BP 110/80
[2021-03-03 13:45] VITALS: TEMP 102.1
[2021-03-03 14:06] LABS: SARS-CoV-2 NAA Rapid Test Not Detected (NotDetected)
== END 2021-03-03 16:30 | DRG 3 ==
LOC: ERS 14:35 → EDBD 16:30 → CCU 16:30
PROVIDERS: ADMIT Surgery; ATTEND Surgery
PROC: 00H032Z Insertion of Monitoring Device into Brain, Percutaneous Approach (ICD-10-PCS; 2021-02-21)
PROC: 5A1955Z Respiratory Ventilation, Greater than 96 Consecutive Hours (ICD-10-PCS; 2021-02-21)
PROC: 4A103BD Monitoring of Intracranial Pressure, Percutaneous Approach (ICD-10-PCS; 2021-02-21)
PROC: 04HY32Z Insertion of Monitoring Device into Lower Artery, Percutaneous Approach (ICD-10-PCS; 2021-02-21)
PROC: 00C00ZZ Extirpation of Matter from Brain, Open Approach (ICD-10-PCS; 2021-02-22)
PROC: 00N00ZZ Release Brain, Open Approach (ICD-10-PCS; 2021-02-22)
PROC: 00U20KZ Supplement Dura Mater with Nonautologous Tissue Substitute, Open Approach (ICD-10-PCS; 2021-02-22)
PROC: 0NB00ZZ Excision of Skull, Open Approach (ICD-10-PCS; 2021-02-22)
PROC: 30233N1 Transfusion of Nonautologous Red Blood Cells into Peripheral Vein, Percutaneous Approach (ICD-10-PCS; 2021-02-22)
PROC: 0BJ08ZZ Inspection of Tracheobronchial Tree, Via Natural or Artificial Opening Endoscopic (ICD-10-PCS; 2021-02-23)
PROC: 0B113F4 Bypass Trachea to Cutaneous with Tracheostomy Device, Percutaneous Approach (ICD-10-PCS; principal; 2021-02-28)
PROC: 0DH63UZ Insertion of Feeding Device into Stomach, Percutaneous Approach (ICD-10-PCS; 2021-02-28)
PROC: 3E0G76Z Introduction of Nutritional Substance into Upper GI, Via Natural or Artificial Opening (ICD-10-PCS; 2021-02-28)
PROC: 5A1945Z Respiratory Ventilation, 24-96 Consecutive Hours (ICD-10-PCS; 2021-02-28)
DX: S06.5X0A Traumatic subdural hemorrhage without loss of consciousness, initial encounter (principal); S32.491A Other specified fracture of right acetabulum, initial encounter for closed fracture; J96.01 Acute respiratory failure with hypoxia; S27.2XXA Traumatic hemopneumothorax, initial encounter; S06.1X0A Traumatic cerebral edema without loss of consciousness, initial encounter; J69.0 Pneumonitis due to inhalation of food and vomit; S32.301A Unspecified fracture of right ilium, initial encounter for closed fracture; S12.100A Unspecified displaced fracture of second cervical vertebra, initial encounter for closed fracture; S12.200A Unspecified displaced fracture of third cervical vertebra, initial encounter for closed fracture; S12.300A Unspecified displaced fracture of fourth cervical vertebra, initial encounter for closed fracture; S12.400A Unspecified displaced fracture of fifth cervical vertebra, initial encounter for closed fracture; S22.43XA Multiple fractures of ribs, bilateral, initial encounter for closed fracture; S37.042A Minor laceration of left kidney, initial encounter; S27.322A Contusion of lung, bilateral, initial encounter; N17.9 Acute kidney failure, unspecified; E87.0 Hyperosmolality and hypernatremia; E87.2 Acidosis; D62 Acute posthemorrhagic anemia; S40.022A Contusion of left upper arm, initial encounter; G93.2 Benign intracranial hypertension; E87.5 Hyperkalemia; S06.6X0A Traumatic subarachnoid hemorrhage without loss of consciousness, initial encounter; R40.2323 Coma scale, best motor response, extension, at hospital admission; R40.2113 Coma scale, eyes open, never, at hospital admission; R40.2213 Coma scale, best verbal response, none, at hospital admission; S42.001A Fracture of unspecified part of right clavicle, initial encounter for closed fracture; V89.2XXA Person injured in unspecified motor-vehicle accident, traffic, initial encounter
CPT/HCPCS: 31500; 31624; 36415; 36416; 36430; 36600; 70450; 70498; 71045; 72125; 72170; 80048; 80053; 81001; 82533; 82550; 82805; 83605; 83735; 83930; 84100; 84146; 85007; 85014; 85018; 85025; 85027; 85060; 85610; 85730; 86850; 86900; 86901; 87040; 87070; 87077; 87086; 87186; 87205; 93970; 94002; 94003; 94640; 95816; 95819; 96374; 96375; 99292; G0390; J0690; J0696; J1720; J1940; J1953; J2001; J2060; J2150; J2250; J2270; J2370; J2543; J2704; J3010; J3480; J3490; J7030; J7050; J7070; J7620; J7799; P9016; P9045; Q9967; S0028; U0002

== ENCOUNTER 2021-07-17 14:58 | Inpatient (IN) | payer MEDICARE ==
[2021-08-07] MEDS ORDERED: Neomycin-Polymyxin 1 ML AMP ONE (07:37)
[2021-08-07] MEDS ORDERED: Fentanyl 100 MCG/2 ML VIAL ONE ×2 (08:09→10:54)
[2021-08-07] MEDS ORDERED: Ondansetron PF 4 MG/2 ML Vial ONE (08:51)
[2021-08-07] MEDS ORDERED: PROPOFOL 200 MG/20 ML VIAL ONE (08:51)
[2021-08-07] MEDS ORDERED: Dexamethasone 20 MG/5 ML VIAL ONE (08:51)
[2021-08-07] MEDS ORDERED: Esmolol 100 MG/10 ML VIAL ONE (08:51)
[2021-08-07] MEDS ORDERED: Glycopyrrolate 0.2 MG/ML 5 ML SYRINGE ONE (08:51)
[2021-08-07] MEDS ORDERED: Rocuronium Bromide 10 MG/ML (10ML VIAL) ONE (08:51)
[2021-08-07] MEDS ORDERED: Labetalol HCl 100 MG/20 ML VIAL ONE (08:51)
[2021-08-07] MEDS: Scopolamine 1.5 mg/72 hour Patch TOP SCH (09:00)
[2021-08-07] MEDS ORDERED: SUGAMMADEX SODIUM 200 MG/2 ML VIAL ONE (09:46)
[2021-08-07] MEDS ORDERED: Promethazine HCl 25 MG/ML VIAL IVPB PRN (10:29)
[2021-08-07] MEDS ORDERED: Promethazine HCl 25 MG/ML VIAL IM PRN ×2 (10:29→11:11)
[2021-08-07] MEDS ORDERED: Ondansetron HCl/PF 4 MG/2 ML Vial IVP PRN (10:29)
[2021-08-07] MEDS ORDERED: Promethazine 25 MG TAB PO PRN (11:10)
[2021-08-07] MEDS ORDERED: Promethazine HCl 12.5 MG SUPP PR PRN (11:11)
[2021-08-07] MEDS ORDERED: Ondansetron PF 4 MG/2 ML Vial IVP PRN (11:11)
[2021-08-07] MEDS ORDERED: Morphine 4 MG/ML VIAL SLOW IVP PRN (11:12)
[2021-08-07] MEDS ORDERED: Acetaminophen 650 MG Suppository PR PRN (11:12)
[2021-08-07] MEDS ORDERED: hydrALAZINE 20 MG/ML VIAL SLOW IVP PRN (11:14)
[2021-08-07] MEDS ORDERED: Labetalol HCl 100 MG/20 ML VIAL SLOW IVP PRN (11:14)
[2021-08-07] MEDS ORDERED: Docusate 100 MG CAP PO PRN (11:16)
[2021-08-07] MEDS ORDERED: Artificial Tear Sol 15 ML BOT EA EYE PRN (11:19)
[2021-08-07] MEDS ORDERED: ALPRAZolam 0.25 MG TAB PO PRN (11:20)
[2021-08-07] MEDS ORDERED: Ondansetron ODT 4 MG TAB PER TUBE PRN (11:25)
[2021-08-07] MEDS ORDERED: hydrALAZINE 20 MG/ML VIAL ONE (12:49)
[2021-08-07] MEDS ORDERED: Famotidine/PF 20 mg/2ml Vial ONE (12:52)
[2021-08-07] MEDS: Amantadine HCl 100 mg Capsule PO SCH (13:00)
[2021-08-07] MEDS: Famotidine/PF 20 mg/2ml Vial SLOW IVP SCH (13:00)
[2021-08-07] MEDS: Ascorbic Acid 500 mg Chewable Tablet PER TUBE SCH (13:00)
[2021-08-07] MEDS ORDERED: Sodium Chloride 0.9% 10 ML ONE (13:03)
[2021-08-07] MEDS: Sodium Chloride 0.9% 1,000 ML IV SCH (13:54)
[2021-08-07] MEDS ORDERED: ceFAZolin Sodium/D5W 2 GM in Premix Bag 1 BAG IVPB SCH (14:00)
[2021-08-07] MEDS: Gabapentin 100 MG CAP PO SCH (14:00)
[2021-08-07] MEDS: Senokot 8.6 MG TAB PER TUBE SCH (14:08)
[2021-08-07] MEDS: Metoprolol Tartrate 25 MG TAB PER TUBE SCH (17:36)
[2021-08-07] MEDS: CEFAZOLIN 2 GM in Sodium Chloride 0.9% 100 ML IVPB SCH (18:17)
[2021-08-07] MEDS: Ipratropium Bromide 2.5 ml Neb NEB SCH ×2 (20:06)
[2021-08-08] MEDS: Gabapentin 100 MG CAP PO SCH ×2 (00:20→21:56)
[2021-08-08] MEDS: levETIRAcetam 500 mg/5 ml Oral Solution PER TUBE SCH ×3 (00:21→21:54)
[2021-08-08] MEDS: Bisacodyl 10 MG SUPP PR SCH ×2 (00:21→21:55)
[2021-08-08] MEDS: Sodium Chloride 0.9% 1,000 ML IV SCH ×2 (00:24→15:50)
[2021-08-08] MEDS: CEFAZOLIN 2 GM in Sodium Chloride 0.9% 100 ML IVPB SCH (00:54)
[2021-08-08] MEDS: Acetaminophen 325 MG TAB PO PRN (04:03)
[2021-08-08 05:53] VITALS: BMI 16.5
[2021-08-08] MEDS: Ipratropium Bromide 2.5 ml Neb NEB SCH ×4 (08:06→18:16)
[2021-08-08] MEDS: Famotidine/PF 20 mg/2ml Vial SLOW IVP SCH ×2 (08:37→21:53)
[2021-08-08] MEDS: Floranex 1 GM Packet PER TUBE SCH (08:38)
[2021-08-08] MEDS: Amantadine HCl 100 mg Capsule PO SCH ×2 (08:38→21:53)
[2021-08-08] MEDS: Ascorbic Acid 500 mg Chewable Tablet PER TUBE SCH ×2 (08:38→21:53)
[2021-08-08] MEDS: Multivit, Chewable SF 1 TAB PER TUBE SCH (08:38)
[2021-08-08] MEDS: Polyethylene Glycol 3350 17 GM Packet PER TUBE SCH (08:39)
[2021-08-08] MEDS: Metoprolol Tartrate 25 MG TAB PER TUBE SCH ×2 (08:45→21:53)
[2021-08-08] MEDS ORDERED: FLU VACC QS2021-22(6MOS UP)/PF 60 MCG/0.5 ML SYRINGE IM ONE (09:00)
[2021-08-08] MEDS: Modafinil 100 MG TAB PER TUBE SCH (10:30)
[2021-08-08 13:41] LABS: Hemoglobin A1c 4.8 % (4.0-6.0)
[2021-08-08 13:47] LABS: ALT (SGPT) 10 U/L (8-55); AST (SGOT) 21 U/L (5-34); Albumin 3.5 g/dL (3.5-5.0); Alkaline Phosphatase 91 U/L (40-110); Anion Gap 13 mmol/L (10-20); BUN (Urea Nitrogen) 9 mg/dL (7.0-18.7); Bilirubin, Total 0.5 mg/dL (0.2-1.2); Calc. Creatinine Clearance 80 mL/min (70-130); Calcium 9.4 mg/dL (7.8-10.44); Carbon Dioxide 25 mmol/L (22-29); Cardiac Risk 4.4 (Less than 4.5); Chloride 107 mmol/L (98-107); Cholesterol 182 mg/dl (< 200 Desired); Globulin 2.7 g/dL (2.4-3.5); Glucose 98 mg/dL (70-105); HDL Cholesterol 41 mg/dL (>60 Neg Risk); LDL Cholesterol, Calculated 110 mg/dL; Potassium 3.9 mmol/L (3.5-5.1); Protein, Total 6.2 g/dL (6.0-8.3); Sodium 141 mmol/L (136-145); Triglycerides 153 mg/dL (Less than 150)
[2021-08-08 14:04] LABS: Bilirubin Negative (Negative); Blood, Urine Negative (Negative); Clarity Turbid (Clear); Glucose, Urine (Dipstick) Normal (Negative); Ketone, Urine Trace mg/dL (Negative); Leukocyte 500 Leu/uL (Negative); Nitrite 2+ (Negative); Protein, Urine (Dipstick) 20 mg/dL (Neg-Trace); Specific Gravity, Urine 1.025 (1.002-1.036); Squamous Epithelial 0-3 HPF (0-3); Urobilinogen Normal mg/dL (Less than 2); WBC/HPF Greater than 50 HPF (0-3); pH, Urine 5.5 (5.0-9.0)
[2021-08-08 14:12] LABS: Bacteria/HPF 2+ HPF (None Seen); Calcium Oxalate Crystals 1+ HPF (None Seen); RBC/HPF None Seen HPF (0-3)
[2021-08-08 14:18] LABS: #Eosinphils 0.1 thou/uL (0.0-0.7); #Lymphocytes 1.5 thou/uL (1.20-3.40); #Monocytes 0.8 thou/uL (0.11-0.59); #Neutrophils 7.8 thou/uL (1.40-6.50); %Basophils 0.2 % (0.0-1.0); %Eosinophils 0.9 % (0.0-10.0); %Lymphocytes 14.9 % (21.0-51.0); %Monocytes 7.6 % (0.0-10.0); %Neutrophils 76.4 % (42.0-75.0); Mean Corpuscular HGB CONC 33.6 g/dL (32.0-36.0); Mean Corpuscular Hemoglobin 34.5 pg (27.0-31.0); Mean Platelet Volume 9.6 fL (7.4-10.4); Platelet Count 246 thou/uL (130-400); RBC Distribution Width 15.1 % (11.5-14.5); Red Blood Cell (RBC) Count 3.48 mill/uL (4.20-5.40); White Blood Cell (WBC) Count 10.2 thou/uL (4.8-10.8)
[2021-08-08] MEDS: Senokot 8.6 MG TAB PER TUBE SCH (21:55)
[2021-08-09] MEDS: Morphine 4 MG/ML VIAL SLOW IVP PRN ×2 (04:14→14:03)
[2021-08-09] MEDS: Sodium Chloride 0.9% 1,000 ML IV SCH ×2 (04:15→16:02)
[2021-08-09] MEDS: Acetaminophen 325 MG TAB PO PRN ×2 (04:37→14:04)
[2021-08-09 04:41] LABS: #Eosinphils 0.1 thou/uL (0.0-0.7); #Lymphocytes 1.3 thou/uL (1.20-3.40); #Monocytes 0.5 thou/uL (0.11-0.59); #Neutrophils 10.1 thou/uL (1.40-6.50); %Basophils 0.1 % (0.0-1.0); %Eosinophils 0.7 % (0.0-10.0); %Lymphocytes 10.6 % (21.0-51.0); %Monocytes 4.4 % (0.0-10.0); %Neutrophils 84.2 % (42.0-75.0); Hemoglobin 10.8 g/dL (12.0-16.0); Mean Corpuscular HGB CONC 33.7 g/dL (32.0-36.0); Mean Corpuscular Hemoglobin 34.9 pg (27.0-31.0); Mean Platelet Volume 9.9 fL (7.4-10.4); Platelet Count 266 thou/uL (130-400); RBC Distribution Width 14.9 % (11.5-14.5); Red Blood Cell (RBC) Count 3.08 mill/uL (4.20-5.40)
[2021-08-09 05:13] LABS: ALT (SGPT) 11 U/L (8-55); AST (SGOT) 20 U/L (5-34); Albumin 3.2 g/dL (3.5-5.0); Alkaline Phosphatase 85 U/L (40-110); Anion Gap 15 mmol/L (10-20); BUN (Urea Nitrogen) 8 mg/dL (7.0-18.7); Bilirubin, Total 0.4 mg/dL (0.2-1.2); Calc. Creatinine Clearance 90 mL/min (70-130); Calcium 9.1 mg/dL (7.8-10.44); Carbon Dioxide 23 mmol/L (22-29); Chloride 107 mmol/L (98-107); Globulin 2.5 g/dL (2.4-3.5); Glucose 111 mg/dL (70-105); Potassium 3.7 mmol/L (3.5-5.1); Protein, Total 5.7 g/dL (6.0-8.3); Sodium 141 mmol/L (136-145)
[2021-08-09] MEDS: Ipratropium Bromide 2.5 ml Neb NEB SCH ×4 (07:39→19:07)
[2021-08-09] MEDS: Ascorbic Acid 500 mg Chewable Tablet PER TUBE SCH ×2 (08:49→22:03)
[2021-08-09] MEDS: Gabapentin 100 MG CAP PO SCH ×2 (08:49→22:03)
[2021-08-09] MEDS: Famotidine/PF 20 mg/2ml Vial SLOW IVP SCH ×2 (08:49→22:03)
[2021-08-09] MEDS: Amantadine HCl 100 mg Capsule PO SCH ×2 (08:50→22:03)
[2021-08-09] MEDS: Multivit, Chewable SF 1 TAB PER TUBE SCH (08:50)
[2021-08-09] MEDS: levETIRAcetam 500 mg/5 ml Oral Solution PER TUBE SCH ×2 (08:51→22:35)
[2021-08-09] MEDS: Metoprolol Tartrate 25 MG TAB PER TUBE SCH ×3 (08:52→22:16)
[2021-08-09] MEDS: Polyethylene Glycol 3350 17 GM Packet PER TUBE SCH (08:53)
[2021-08-09] MEDS: Cephalexin 250 MG/5 ML Oral Suspension PER TUBE SCH ×4 (10:50→22:03)
[2021-08-09] MEDS: Modafinil 100 MG TAB PER TUBE SCH (10:50)
[2021-08-09] MEDS: Floranex 1 GM Packet PER TUBE SCH (10:50)
[2021-08-09] MEDS: Bisacodyl 10 MG SUPP PR SCH (22:07)
[2021-08-09] MEDS: Senokot 8.6 MG TAB PER TUBE SCH (22:07)
[2021-08-10] MEDS: Sodium Chloride 0.9% 1,000 ML IV SCH ×2 (05:42→18:34)
[2021-08-10] MEDS: Ipratropium Bromide 2.5 ml Neb NEB SCH ×4 (07:25→18:43)
[2021-08-10] MEDS: Scopolamine 1.5 mg/72 hour Patch TOP SCH (08:12)
[2021-08-10] MEDS: Metoprolol Tartrate 25 MG TAB PER TUBE SCH ×2 (08:14→20:28)
[2021-08-10] MEDS: Amantadine HCl 100 mg Capsule PO SCH ×2 (08:14→20:27)
[2021-08-10] MEDS: Polyethylene Glycol 3350 17 GM Packet PER TUBE SCH (08:14)
[2021-08-10] MEDS: levETIRAcetam 500 mg/5 ml Oral Solution PER TUBE SCH ×2 (08:14→20:33)
[2021-08-10] MEDS: Ascorbic Acid 500 mg Chewable Tablet PER TUBE SCH ×2 (08:15→20:27)
[2021-08-10] MEDS: Gabapentin 100 MG CAP PO SCH ×2 (08:15→20:28)
[2021-08-10] MEDS: Famotidine/PF 20 mg/2ml Vial SLOW IVP SCH ×2 (08:15→20:38)
[2021-08-10] MEDS: Multivit, Chewable SF 1 TAB PER TUBE SCH (09:10)
[2021-08-10] MEDS: Cephalexin 250 MG/5 ML Oral Suspension PER TUBE SCH ×4 (09:10→20:34)
[2021-08-10] MEDS: Modafinil 100 MG TAB PER TUBE SCH (09:25)
[2021-08-10] MEDS: Senokot 8.6 MG TAB PER TUBE SCH (20:27)
[2021-08-10 21:14] VITALS: BP 178/93; TEMP 98.3
== END 2021-08-10 21:20 | DRG 981 ==
LOC: SURG A 08-07 06:46 → PACU-TCU 08-07 12:14 → CCU 08-07 22:18 → SURG A 08-09 15:27
PROVIDERS: ADMIT Neurological Surgery; ATTEND Neurological Surgery
PROC: 0NR007Z Replacement of Skull with Autologous Tissue Substitute, Open Approach (ICD-10-PCS; principal; 2021-08-07)
DX: Z42.8 Encounter for other plastic and reconstructive surgery following medical procedure or healed injury (principal); G82.50 Quadriplegia, unspecified; Z20.822 Contact with and (suspected) exposure to COVID-19; Z66 Do not resuscitate; N18.9 Chronic kidney disease, unspecified; K21.9 Gastro-esophageal reflux disease without esophagitis; G40.909 Epilepsy, unspecified, not intractable, without status epilepticus; D63.1 Anemia in chronic kidney disease; I12.9 Hypertensive chronic kidney disease with stage 1 through stage 4 chronic kidney disease, or unspecified chronic kidney disease; E11.22 Type 2 diabetes mellitus with diabetic chronic kidney disease; E11.40 Type 2 diabetes mellitus with diabetic neuropathy, unspecified; Z87.01 Personal history of pneumonia (recurrent); Z79.899 Other long term (current) drug therapy; Z88.8 Allergy status to other drugs, medicaments and biological substances; Z93.0 Tracheostomy status; Z93.1 Gastrostomy status
CPT/HCPCS: 36415; 70450; 80053; 80061; 81001; 83036; 85025; 93005; 93010; 94640; C1713; J0360; J0690; J1100; J2270; J2405; J2704; J3010; J3370; J3490; J7050; S0028